=== PATIENT | male | born 1940 | race Caucasian/White ===

== ENCOUNTER 2016-12-30 13:10 | Outpatient (CLI) | payer MEDICARE, OTHER | END 2016-12-30 13:11 | disposition home or self-care (01) | DX: Z79.899 Other long term (current) drug therapy (principal); E11.9 Type 2 diabetes mellitus without complications; I10 Essential (primary) hypertension; Z12.5 Encounter for screening for malignant neoplasm of prostate; E78.5 Hyperlipidemia, unspecified | CPT/HCPCS: 36415; 80053; 80061; 83036; 85025; G0103 ==

== ENCOUNTER 2017-05-03 11:18 | Outpatient (CLI) | payer MEDICARE, OTHER ==
[2017-05-03 19:38] LABS: HEMOGLOBIN A1C 0.82 g/dL
== END 2017-05-03 11:19 | disposition home or self-care (01) ==
LOC: LAB.WCP 11:18
PROVIDERS: ATTEND Family Medicine
DX: E11.9 Type 2 diabetes mellitus without complications (principal)
CPT/HCPCS: 36415; 83036

== ENCOUNTER 2017-05-23 13:38 | Outpatient (CLI) | payer MEDICARE, OTHER | END 2017-05-23 13:39 | disposition home or self-care (01) | LOC: SC 13:38 | PROVIDERS: ATTEND Specialist | DX: G47.30 Sleep apnea, unspecified (principal); R53.83 Other fatigue; R06.83 Snoring; G47.8 Other sleep disorders | CPT/HCPCS: 99205; G0463; 99212 ==

== ENCOUNTER 2017-11-21 10:15 | Outpatient (CLI) | payer MEDICARE, OTHER | END 2017-11-21 10:16 | disposition home or self-care (01) | LOC: SC 10:15 | PROVIDERS: ATTEND Internal Medicine Pulmonary Disease | DX: G47.30 Sleep apnea, unspecified (principal); G47.10 Hypersomnia, unspecified; R06.83 Snoring | CPT/HCPCS: 99213; G0463; 99212 ==

== ENCOUNTER 2018-01-19 20:43 | Outpatient (CLI) | payer MEDICARE, OTHER | END 2018-01-19 20:44 | disposition home or self-care (01) | LOC: SC 20:43 | PROVIDERS: ATTEND Internal Medicine Pulmonary Disease | DX: G47.33 Obstructive sleep apnea (adult) (pediatric) (principal); G47.31 Primary central sleep apnea; G47.61 Periodic limb movement disorder; I48.91 Unspecified atrial fibrillation; R00.1 Bradycardia, unspecified | CPT/HCPCS: 95810 ==

== ENCOUNTER 2018-01-30 14:01 | Outpatient (CLI) | payer MEDICARE, OTHER | END 2018-01-30 14:02 | disposition home or self-care (01) | LOC: SC 14:01 | PROVIDERS: ATTEND Internal Medicine Pulmonary Disease | DX: G47.33 Obstructive sleep apnea (adult) (pediatric) (principal); G47.31 Primary central sleep apnea; I48.92 Unspecified atrial flutter; R00.1 Bradycardia, unspecified | CPT/HCPCS: 99213; G0463; 99212 ==

== ENCOUNTER 2018-02-06 07:20 | Outpatient (CLI) | payer MEDICARE, OTHER | END 2018-02-06 07:21 | disposition home or self-care (01) | LOC: DI 07:20 | PROVIDERS: ATTEND Family Medicine | DX: I48.91 Unspecified atrial fibrillation (principal); I51.7 Cardiomegaly | CPT/HCPCS: 93306 ==

== ENCOUNTER 2018-02-13 19:14 | Outpatient (CLI) | payer MEDICARE, OTHER | END 2018-02-13 19:15 | disposition home or self-care (01) | LOC: SC 19:14 | PROVIDERS: ATTEND Internal Medicine Pulmonary Disease | DX: G47.33 Obstructive sleep apnea (adult) (pediatric) (principal); G47.61 Periodic limb movement disorder; I48.91 Unspecified atrial fibrillation | CPT/HCPCS: 95811 ==

== ENCOUNTER 2018-02-19 07:20 | Day surgery (SDC) | payer MEDICARE, OTHER ==
[2018-02-19 08:06] VITALS: BP 132/78
== END 2018-02-19 07:21 | disposition home or self-care (01) ==
LOC: SDS 07:20
PROVIDERS: ATTEND Surgery
DX: Z12.11 Encounter for screening for malignant neoplasm of colon (principal); R00.1 Bradycardia, unspecified; Z53.9 Procedure and treatment not carried out, unspecified reason
CPT/HCPCS: 93005

== ENCOUNTER 2018-02-19 08:14 | Emergency (ER) | payer MEDICARE, OTHER ==
[2018-02-19] MEDS ORDERED: SODIUM CHLORIDE 0.9% 1,000 ML IV ONE (08:19)
--- NOTE | 2018-02-19 08:26 | ED Physician Documentation ---
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77 male hx a /fib flutter - with slow response - noted on presurgical echo as well as by sleep study this month - rate as low as 28 pt arrived for colonoscopy today and had preop EKG showing a flutter with ventricular escape rate of 33 not hypotensive feels fatigued also pmh HTN HLD DM PD PAST MEDICAL HISTORY - Past Medical History Cardiovascular: Hypertension, High cholesterol Endocrine/Autoimmune: Type 2 diabetes - Past Surgical History Past Surgical History: Yes Ortho: Hip replacement - Present Medications Home Medications: Ambulatory Orders Medication Instructions Recorded Confirmed Lisinopril 40 mg PO DAILY 04/18/16 02/16/18 Metformin HCl 500 mg PO BID 04/18/16 02/16/18 Aspirin [Aspirin EC] 81 mg PO DAILY 02/16/18 02/16/18 Atorvastatin [Lipitor] 40 mg PO DAILY 02/16/18 02/16/18 Gabapentin 600 mg PO DAILY 02/16/18 02/16/18 Hydrocodone/Acetaminophen 1 each PO Q8HR PRN 02/16/18 02/16/18 [Hydrocodone-Acetamin 5-325 mg] Meloxicam [Mobic] 15 mg PO DAILY 02/16/18 02/16/18 Multivitamin [Multiple Vitamins] 1 each PO DAILY 02/16/18 02/16/18 - Allergies Allergies/Adverse Reactions: Allergies Allergy/AdvReac Type Severity Reaction Status Date / Time No Known Drug Allergies Allergy Verified 04/18/16 13:36 - Social History Does the pt smoke?: No Smoking Status: Never smoker Does the pt drink ETOH?: Yes Does the pt have substance abuse?: No - Immunizations Immunizations are current?: No Immunizations: TDAP >10years/unknown Results - Vitals Vitals: Vital Signs - 24 hr 02/19/18 02/19/18 02/19/18 08:16 08:57 09:16 Temperature 36.5 C Heart Rate 34 L 33 L 32 L Respiratory 20 15 18 Rate Blood Pressure 165/69 H 152/80 H 168/73 H O2 Saturation 92 94 97 02/19/18 02/19/18 02/19/18 09:54 10:26 11:00 Temperature Heart Rate 31 L 31 L 95 Respiratory 21 18 14 Rate Blood Pressure 160/89 H 170/64 H 172/78 H O2 Saturation 95 95 95 02/19/18 11:34 Temperature Heart Rate 33 L Respiratory 14 Rate Blood Pressure 178/64 H O2 Saturation 95 Oxygen O2 Source Room air - EKG (time done) 0803 (done in OR) Rate: Rate (enter#) (33) Rhythm: Atrial flutter Compare to prior EKG: Other (a flutter slow vent response, vent escape at 33) - Labs Labs: Laboratory Tests 02/19/18 02/19/18 02/19/18 11:15 11:15 11:15 WBC 7.2 RBC 4.66 L Hgb 14.3 Hct 43.2 MCV 92.8 MCH 30.7 MCHC 33.0 RDW 15.6 H Plt Count 132 MPV 10.7 Neut # (Auto) 4.7 Lymph # (Auto) 1.8 [place]aine # (Auto) 0.5 Eos # (Auto) 0.1 Baso # (Auto) 0.0 Absolute Nucleated RBC 0.00 Nucleated RBC % 0.0 Sodium 140 Potassium 4.7 Chloride 105 Carbon Dioxide 24 Anion Gap 11.0 BUN 17 Creatinine 1.0 Estimated GFR (MDRD) 73 L Glucose 123 H Calcium 9.1 Troponin I < 0.04 PD MEDICAL DECISION MAKING - ED course ED course: a flutter with slow ventricular response / escape rhythm not on CCB or BB may need a PPM spoke to cardio Dr Aponte at [facility] and she accept pt in transfer pt was sent from OR without an IV or preop labs so IV and labs are being obtained in ER - Sepsis Event Vital Signs: Vital Signs - 24 hr 02/19/18 02/19/18 02/19/18 08:16 08:57 09:16 Temperature 36.5 C Heart Rate 34 L 33 L 32 L Respiratory 20 15 18 Rate Blood Pressure 165/69 H 152/80 H 168/73 H O2 Saturation 92 94 97 02/19/18 02/19/18 02/19/18 09:54 10:26 11:00 Temperature Heart Rate 31 L 31 L 95 Respiratory 21 18 14 Rate Blood Pressure 160/89 H 170/64 H 172/78 H O2 Saturation 95 95 95 02/19/18 11:34 Temperature Heart Rate 33 L Respiratory 14 Rate Blood Pressure 178/64 H O2 Saturation 95 Oxygen O2 Source Room air Departure - Departure Disposition: 02 Transfer Acute Care Hosp Clinical Impression: Bradycardia Follow-Up: ANDREW BAKER MD [Physician No Access] - Discharge Date/Time: 02/19/18 11:50
[2018-02-19 11:34] LABS: BASOPHILS % (AUTO) 0.4 %; EOSINOPHILS # (AUTO) 0.1 10^3/uL (0.0-0.7); EOSINOPHILS % (AUTO) 1.9 %; HGB - HEMOGLOBIN 14.3 g/dL (14.0-18.0); LYMPHOCYTES # (AUTO) 1.8 10^3/uL (1.5-3.5); LYMPHOCYTES % (AUTO) 25.1 %; MEAN CORPUSCULAR HEMOGLOBIN 30.7 pg (27.0-31.0); MEAN CORPUSCULAR VOLUME 92.8 fL (80.0-94.0); MEAN PLATELET VOLUME 10.7 fL (7.4-11.4); MONOCYTES # (AUTO) 0.5 10^3/uL (0.0-1.0); MONOCYTES % (AUTO) 7.1 %; NEUTROPHILS # (AUTO) 4.7 10^3/uL (1.5-6.6); NEUTROPHILS % (AUTO) 65.5 %; PLT - PLATELET COUNT 132 10^3/uL (130-450); RED BLOOD COUNT 4.66 10^6/uL (4.70-6.10); RED CELL DISTRIBUTION WIDTH 15.6 % (12.0-15.0); WHITE BLOOD COUNT 7.2 x10^3/uL (4.8-10.8)
[2018-02-19 11:36] VITALS: BP 178/64
[2018-02-19 11:37] LABS: CALCIUM 9.1 mg/dL (8.5-10.3)
== END 2018-02-19 11:50 | disposition short-term general hospital (02) ==
LOC: ED 08:14
DX: R00.1 Bradycardia, unspecified (principal); I48.91 Unspecified atrial fibrillation; I48.92 Unspecified atrial flutter; I45.10 Unspecified right bundle-branch block; I44.30 Unspecified atrioventricular block; Z12.11 Encounter for screening for malignant neoplasm of colon; Z53.9 Procedure and treatment not carried out, unspecified reason; I10 Essential (primary) hypertension; E78.00 Pure hypercholesterolemia, unspecified; E11.9 Type 2 diabetes mellitus without complications; Z96.649 Presence of unspecified artificial hip joint
CPT/HCPCS: 36415; 80048; 84484; 85025; 93005; 96360; 96361; 99284

== ENCOUNTER 2018-02-27 09:56 | Outpatient (CLI) | payer MEDICARE, OTHER | END 2018-02-27 09:57 | disposition home or self-care (01) | LOC: SC 09:56 | PROVIDERS: ATTEND Internal Medicine Pulmonary Disease | DX: G47.33 Obstructive sleep apnea (adult) (pediatric) (principal); G47.31 Primary central sleep apnea; E78.5 Hyperlipidemia, unspecified; E11.9 Type 2 diabetes mellitus without complications; I10 Essential (primary) hypertension; Z79.899 Other long term (current) drug therapy | CPT/HCPCS: 36415; 83036; 99213; G0463; 99212 ==

== ENCOUNTER 2018-02-27 14:13 | Outpatient (CLI) | payer MEDICARE, OTHER ==
[2018-02-27 19:29] LABS: HB2 TOTAL 16.9 g/dL; HEMOGLOBIN A1C 1.03 g/dL; HEMOGLOBIN A1C % 7.7 % (4.6-6.2)
== END 2018-02-27 14:14 | disposition home or self-care (01) ==
LOC: LAB.WCP 14:13
PROVIDERS: ATTEND Family Medicine
DX: Z79.899 Other long term (current) drug therapy (principal); E78.5 Hyperlipidemia, unspecified; E11.9 Type 2 diabetes mellitus without complications; I10 Essential (primary) hypertension
CPT/HCPCS: 36415; 83036

== ENCOUNTER 2018-03-15 14:11 | Outpatient (CLI) | payer MEDICARE, OTHER | END 2018-03-15 14:12 | disposition home or self-care (01) | LOC: LAB.WCP 14:11 | PROVIDERS: ATTEND Orthopaedic Surgery Foot and Ankle Surgery | DX: E55.9 Vitamin D deficiency, unspecified (principal) | CPT/HCPCS: 36415; 82306 ==

== ENCOUNTER 2018-05-28 10:05 | Outpatient (CLI) | payer MEDICARE, OTHER | END 2018-05-28 10:06 | disposition home or self-care (01) | LOC: SC 10:05 → EDSTATUS 10:30 | PROVIDERS: ATTEND Internal Medicine Pulmonary Disease | DX: G47.31 Primary central sleep apnea (principal); G47.33 Obstructive sleep apnea (adult) (pediatric) | CPT/HCPCS: 99212; 99213 ==

== ENCOUNTER 2018-11-28 08:00 | Outpatient (CLI) | payer MEDICARE, OTHER ==
[2018-11-28 13:31] LABS: BASOPHILS # (AUTO) 0.1 10^3/uL (0.0-0.1); BASOPHILS % (AUTO) 0.8 %; EOSINOPHILS # (AUTO) 0.1 10^3/uL (0.0-0.7); EOSINOPHILS % (AUTO) 1.5 %; HGB - HEMOGLOBIN 12.5 g/dL (14.0-18.0); LYMPHOCYTES # (AUTO) 1.8 10^3/uL (1.5-3.5); MEAN CORPUSCULAR HEMOGLOBIN 31.5 pg (27.0-31.0); MEAN CORPUSCULAR HGB CONC 33.1 g/dL (32.0-36.0); MEAN CORPUSCULAR VOLUME 95.1 fL (80.0-94.0); MEAN PLATELET VOLUME 10.1 fL (7.4-11.4); MONOCYTES # (AUTO) 0.4 10^3/uL (0.0-1.0); MONOCYTES % (AUTO) 6.6 %; NEUTROPHILS % (AUTO) 63.1 %; PLT - PLATELET COUNT 177 10^3/uL (130-450); RED BLOOD COUNT 3.96 10^6/uL (4.70-6.10); RED CELL DISTRIBUTION WIDTH 15.8 % (12.0-15.0); WHITE BLOOD COUNT 6.3 x10^3/uL (4.8-10.8)
[2018-11-28 14:03] LABS: CARBON DIOXIDE - CO2 26 mmol/L (21-32); CHLORIDE 105 mmol/L (101-111); GLUCOSE 140 mg/dL (70-100); SODIUM 141 mmol/L (135-145)
[2018-11-28 14:36] LABS: ALBUMIN 3.9 g/dL (3.2-5.5); ALBUMIN/GLOBULIN RATIO 1.3 (1.0-2.2); ALKALINE PHOSPHATASE 71 IU/L (42-121); ALT ALANINE AMINOTRANSFERASE 25 IU/L (10-60); AST ASPARTATE AMINOTRANSFERASE 25 IU/L (10-42); BILIRUBIN,TOTAL 1.8 mg/dL (0.2-1.0); BUN - BLOOD UREA NITROGEN 17 mg/dL (6-20); CHOL/HDL RATIO 2.9 (<5.0); CHOLESTEROL 161 mg/dL; GFR - MDRD 72 (>89); HDL CHOLESTEROL 56 mg/dL; LDL CHOLESTEROL,CALCULATED 80 mg/dL; LDL/HDL RATIO 1.4 (<3.6); VLDL CHOLESTEROL 25 mg/dL
[2018-11-28 15:54] LABS: HB2 TOTAL 12.7 g/dL; HEMOGLOBIN A1C 0.61 g/dL; HEMOGLOBIN A1C % 6.5 % (4.6-6.2)
== END 2018-11-28 23:59 | disposition home or self-care (01) ==
LOC: LAB.WCP 08:00
PROVIDERS: ATTEND Family Medicine
DX: E11.9 Type 2 diabetes mellitus without complications (principal); Z79.891 Long term (current) use of opiate analgesic
CPT/HCPCS: 36415; 80053; 80061; 83036; 83721; 84443; 85025

== ENCOUNTER 2019-02-28 06:55 | Day surgery (SDC) | payer MEDICARE, OTHER ==
[2019-02-28] MEDS ORDERED: BSS/LIDOCAINE/EPINEPHRINE 1 ML SYRINGE ONE ×2 (07:11→08:48)
[2019-02-28] MEDS ORDERED: TRIAMCIN/MOXIFLOX OPHTHALMIC 0.6 ML VIAL IO ONE ×2 (07:11→08:54)
[2019-02-28] MEDS ORDERED: TIMOLOL 0.5% OPHTH DROPS ONE (07:11)
[2019-02-28] MEDS ORDERED: BRIMONIDINE 0.2% OPHTH DROPS 5 ML ONE (07:11)
[2019-02-28] MEDS ORDERED: VANCOMYCIN OPHTHALMI 8MG/0.8ML 8 MG/0.8 ML SYRINGE IO ONE ×2 (07:11→08:54)
[2019-02-28] MEDS ORDERED: EPINEPHrine 1 MG/ML AMP ONE (07:11)
[2019-02-28] MEDS ORDERED: LACTATED RINGERS 500 ML IV ONE (07:18)
[2019-02-28] MEDS ORDERED: PHENYLEPHRINE 2.5% OPHTH 2 ML DROPS ONE (07:19)
[2019-02-28] MEDS ORDERED: KETOROLAC 0.45% OPHTH DROPS ONE (07:19)
[2019-02-28] MEDS ORDERED: CYCLOPENTOLATE 1% OPHTH DROPS 2 ML ONE (07:19)
[2019-02-28] MEDS ORDERED: PROPARACAINE 0.5% OPHTH DROPS 15 ML ONE (07:20)
[2019-02-28] MEDS ORDERED: PHENYLEPHRINE 2.5% OPHTH 2 ML DROPS RIGHTEYE ONE (07:25)
[2019-02-28] MEDS ORDERED: CYCLOPENTOLATE 1% OPHTH DROPS 2 ML RIGHTEYE ONE (07:25)
[2019-02-28] MEDS ORDERED: KETOROLAC 0.45% OPHTH DROPS RIGHTEYE ONE (07:25)
[2019-02-28] MEDS ORDERED: PROPARACAINE 0.5% OPHTH DROPS 15 ML RIGHTEYE ONE ×2 (07:25→08:54)
--- NOTE | 2019-02-28 08:09 | ANESTHESIA ---
Pre-Anesthesia VS, & Labs - Diagnosis nuclear sclerotic cataract, right - Procedure cataract extraction with intraocular lens Vital Signs: Temp Pulse Resp BP Pulse Ox 36.0 C L 64 18 136/68 H 96 02/28/19 07:18 02/28/19 07:18 02/28/19 07:18 02/28/19 07:18 02/28/19 07:18 Height 68 ft Weight (kg) 108 kg Body Mass Index 36.1 - NPO >8 hours Home Medications and Allergies Home Medications: Ambulatory Orders Allopurinol 100 mg PO DAILY 02/27/19 Atorvastatin [Lipitor] 40 mg PO DAILY 02/27/19 Furosemide 40 mg PO DAILY 02/27/19 Rivaroxaban [Xarelto] 20 mg PO DAILY 02/27/19 Valacyclovir HCl [Valtrex] 1,000 mg PO PRN PRN 02/27/19 amLODIPine [Norvasc] 5 mg PO DAILY 02/27/19 Acetaminophen [Tylenol Extra Strength] 1,000 mg PO ONCE PRN 02/28/19 Lisinopril 20 mg PO BID 04/18/16 Metformin HCl 500 mg PO BID 04/18/16 Gabapentin 600 mg PO DAILY 02/16/18 Multivitamin [Multiple Vitamins] 1 each PO DAILY 02/16/18 Allopurinol 100 mg PO DAILY 02/27/19 Atorvastatin [Lipitor] 40 mg PO DAILY 02/27/19 Furosemide 40 mg PO DAILY 02/27/19 Rivaroxaban [Xarelto] 20 mg PO DAILY 02/27/19 Valacyclovir HCl [Valtrex] 1,000 mg PO PRN PRN 02/27/19 amLODIPine [Norvasc] 5 mg PO DAILY 02/27/19 Acetaminophen [Tylenol Extra Strength] 1,000 mg PO ONCE PRN 02/28/19 Allergies/Adverse Reactions: Allergies Allergy/AdvReac Type Severity Reaction Status Date / Time No Known Drug Allergies Allergy Verified 02/28/19 07:27 Anes History & Medical History - Anesthetic History Anesthesia Complications: reports: No previous complications - Medical History Cardiovascular: reports: Hypertension, High cholesterol, Arrhythmia (s/p cardiac abation), Other Pulmonary: reports: Sleep apnea, CPAP use Gastrointestinal: reports: Hemorrhoids Urinary: reports: None Musculoskeletal: reports: Osteoarthritis, Gout, Chronic back pain Endocrine/Autoimmune: reports: Type 2 diabetes Skin: reports: None Smoking Status: Never smoker - Surgical History General: Colonoscopy Orthopedic: Hip replacement Exam General: Alert Plan Anesthesia Type: MAC Consent for Procedure(s) Verified and Reviewed: Yes Code Status: Attempt Resuscitation ASA classification: 2-Mild systemic disease Is this case an emergency?: No
[2019-02-28] MEDS ORDERED: CHONDR SULF/HYALURONATE SYRINGE IO ONE (08:53)
[2019-02-28] MEDS ORDERED: EPINEPHrine 1 MG/ML AMP IVP ONE (08:53)
[2019-02-28] MEDS ORDERED: BSS/LIDOCAINE/EPINEPHRINE 1 ML SYRINGE IO ONE (08:53)
[2019-02-28] MEDS ORDERED: TIMOLOL 0.5% OPHTH DROPS OPTH ONE (08:53)
[2019-02-28] MEDS ORDERED: BRIMONIDINE 0.2% OPHTH DROPS 5 ML OPTH ONE (08:53)
[2019-02-28 09:24] VITALS: BP 121/71
--- NOTE | 2019-02-28 09:28 | OPERATIVE REPORT ---
DATE OF SERVICE: 02/28/2019 Physician: Taj Gallardo MD PREOPERATIVE DIAGNOSIS: Visually significant cataract, right eye. This was his first cataract surge ry. POSTOPERATIVE DIAGNOSIS: Visually significant cataract, right eye. This was his first cataract surg tonya. DESCRIPTION OF PROCEDURE: Phacoemulsification with posterior chamber intraocular lens implant, right eye. SURGEON: Taj Gallardo M.D. ANESTHESIA: Monitored anesthesia care. COMPLICATIONS: None. OPERATIVE INDICATIONS: This is a 78-year-old man with progressive vision loss in the right eye due t o 2+ nuclear sclerotic cataract. Best corrected visual acuity was 20/30 with glare to 20/80 in the r ight eye. Indications for surgery were difficulty reading, difficulty driving in low light or at nig ht, difficulty driving at night because of headlights from other vehicles, difficulty with glare or b right lights in any situation, and decreased acuity with firearms. He was consented at length concer best risks and benefits of cataract surgery, after which he expressed a desire to proceed with surger y. OPERATIVE PROCEDURE: Patient was taken to OR #3 and placed under monitored anesthesia care. Surgica l timeout was conducted confirming correct patient, correct procedure, and correct surgical site. He was given topical anesthesia, then prepped and draped in the usual sterile fashion. The eye was ent ered at the 12 and 9 o'clock positions. Intracameral Shugarcaine was injected into the anterior shona rima, followed by Viscoat. A continuous-tear curvilinear capsulorrhexis was performed. The nucleus w as hydrodissected and phacoemulsified. The cortex was evacuated using automated infusion and aspirat ion. Provisc was injected in the capsular bag, and a 20.5 diopter intraocular lens was inserted into the bag. Approximately 0.8 mL of a mixture of triamcinolone, moxifloxacin and vancomycin was inject ed subconjunctivally in the superior quadrant for infection and inflammation prophylaxis. I and A wa s used to evacuate the viscoelastic materials. The eye was inflated to physiologic pressure using ba lanced salt solution and found to be watertight. Patient was taken from the operating room in good c ondition and given postoperative instructions. TD: 02/28/2019 09:07
== END 2019-02-28 06:56 | disposition home or self-care (01) ==
LOC: SDS 06:55
PROVIDERS: ATTEND Ophthalmology
PROC: 08RJ3JZ Replacement of Right Lens with Synthetic Substitute, Percutaneous Approach (ICD-10-PCS; principal; 2019-02-28 08:30)
DX: H25.11 Age-related nuclear cataract, right eye (principal); E11.9 Type 2 diabetes mellitus without complications; I10 Essential (primary) hypertension; G47.30 Sleep apnea, unspecified
CPT/HCPCS: 66984; A9270; V2632

== ENCOUNTER 2019-04-04 08:01 | Outpatient (CLI) | payer MEDICARE, OTHER ==
[2019-04-04 13:04] LABS: CHOL/HDL RATIO 4.5 (<5.0); CHOLESTEROL 206 mg/dL; HDL CHOLESTEROL 46 mg/dL; LDL CHOLESTEROL,CALCULATED 91 mg/dL; VLDL CHOLESTEROL 69 mg/dL
[2019-04-04 14:23] LABS: HB2 TOTAL 12.2 g/dL; HEMOGLOBIN A1C 0.69 g/dL; HEMOGLOBIN A1C % 7.3 % (4.6-6.2)
== END 2019-04-04 23:59 | disposition home or self-care (01) ==
LOC: LAB.WCP 08:01
PROVIDERS: ATTEND Internal Medicine
DX: I48.3 Typical atrial flutter (principal); I10 Essential (primary) hypertension; E11.9 Type 2 diabetes mellitus without complications
CPT/HCPCS: 36415; 80061; 83036; 83721

== ENCOUNTER 2019-06-06 09:47 | Outpatient (CLI) | payer MEDICARE, OTHER ==
[2019-06-06 13:33] LABS: CREATININE,URINE 22.5 mg/dL
[2019-06-06 13:33] LABS: HB2 TOTAL 12.4 g/dL; HEMOGLOBIN A1C 0.61 g/dL; HEMOGLOBIN A1C % 6.7 % (4.6-6.2)
[2019-06-06 13:40] LABS: ALBUMIN 4.2 g/dL (3.2-5.5); ALBUMIN/GLOBULIN RATIO 1.3 (1.0-2.2); ALKALINE PHOSPHATASE 69 IU/L (42-121); ALT ALANINE AMINOTRANSFERASE 34 IU/L (10-60); AST ASPARTATE AMINOTRANSFERASE 29 IU/L (10-42); BILIRUBIN,TOTAL 1.2 mg/dL (0.2-1.0); BUN - BLOOD UREA NITROGEN 26 mg/dL (6-20); CALCIUM 9.2 mg/dL (8.5-10.3); CARBON DIOXIDE - CO2 26 mmol/L (21-32); CHLORIDE 107 mmol/L (101-111); CHOL/HDL RATIO 3.1 (<5.0); CHOLESTEROL 170 mg/dL; GFR - MDRD 72 (>89); GLUCOSE 150 mg/dL (70-100); HDL CHOLESTEROL 54 mg/dL; LDL CHOLESTEROL,CALCULATED 96 mg/dL; LDL/HDL RATIO 1.8 (<3.6); SODIUM 140 mmol/L (135-145); TOTAL PROTEIN 7.5 g/dL (6.7-8.2); VLDL CHOLESTEROL 20 mg/dL
[2019-06-06 13:41] LABS: TOTAL PROTEIN,URINE TIMED < 6 mg/dL
== END 2019-06-06 23:59 | disposition home or self-care (01) ==
LOC: LAB.WCP 09:47
PROVIDERS: ATTEND Family Medicine
DX: E11.9 Type 2 diabetes mellitus without complications (principal); E78.5 Hyperlipidemia, unspecified
CPT/HCPCS: 36415; 80053; 80061; 82570; 83036; 83721; 84156; 84443

== ENCOUNTER 2019-12-27 10:37 | Outpatient (CLI) | payer MEDICARE, OTHER ==
[2019-12-27 11:04] LABS: BASOPHILS % (AUTO) 0.6 %; EOSINOPHILS # (AUTO) 0.2 10^3/uL (0.0-0.7); EOSINOPHILS % (AUTO) 2.4 %; LYMPHOCYTES # (AUTO) 2.3 10^3/uL (1.5-3.5); LYMPHOCYTES % (AUTO) 32.1 %; MEAN CORPUSCULAR HEMOGLOBIN 32.5 pg (27.0-31.0); MEAN CORPUSCULAR VOLUME 98.5 fL (80.0-94.0); MEAN PLATELET VOLUME 11.6 fL (7.4-11.4); MONOCYTES # (AUTO) 0.6 10^3/uL (0.0-1.0); MONOCYTES % (AUTO) 8.3 %; NEUTROPHILS % (AUTO) 56.3 %; PLT - PLATELET COUNT 180 10^3/uL (130-450); RED CELL DISTRIBUTION WIDTH 14.4 % (12.0-15.0)
[2019-12-27 11:21] LABS: ALBUMIN 4.4 g/dL (3.2-5.5); ALBUMIN/GLOBULIN RATIO 1.4 (1.0-2.2); ALKALINE PHOSPHATASE 79 IU/L (42-121); ALT ALANINE AMINOTRANSFERASE 29 IU/L (10-60); AST ASPARTATE AMINOTRANSFERASE 26 IU/L (10-42); BILIRUBIN,TOTAL 1.3 mg/dL (0.2-1.0); BUN - BLOOD UREA NITROGEN 33 mg/dL (6-20); CALCIUM 9.5 mg/dL (8.5-10.3); CARBON DIOXIDE - CO2 26 mmol/L (21-32); CHLORIDE 102 mmol/L (101-111); CHOL/HDL RATIO 3.8 (<5.0); CHOLESTEROL 183 mg/dL; CREATININE 1.3 mg/dL (0.6-1.2); GLUCOSE 167 mg/dL (70-100); HDL CHOLESTEROL 48 mg/dL; LDL CHOLESTEROL,CALCULATED 71 mg/dL; LDL/HDL RATIO 1.5 (<3.6); SODIUM 139 mmol/L (135-145); TOTAL PROTEIN 7.5 g/dL (6.7-8.2); VLDL CHOLESTEROL 64 mg/dL
[2019-12-27 11:36] LABS: CREATININE,URINE 84.1 mg/dL; MICROALBUM/CREATININE RATIO,UR 5.9 ug/mg (<30.0); MICROALBUMIN,URINE 0.5 mg/dL (0-300.0)
[2019-12-27 11:40] LABS: HB2 TOTAL 13.4 g/dL; HEMOGLOBIN A1C 0.64 g/dL; HEMOGLOBIN A1C % 6.5 % (4.6-6.2)
--- NOTE | 2019-12-27 16:36 | XRAY Report ---
Reason: ARTHRITIS,LEFT KNEE Procedure Date: 12/27/2019 Accession Number: [id number] / [id number] Procedure: XR - Knee 2 View LT CPT Code: Final Report FULL RESULT: EXAM: LEFT KNEE RADIOGRAPHY EXAM DATE: 12/27/2019 11:11 AM. CLINICAL HISTORY: ARTHRITIS, LEFT KNEE. COMPARISON: None. TECHNIQUE: 2 views. FINDINGS: Bones: Normal. No fractures or bone lesions. Joints: Moderate joint space narrowing in the medial compartment with no significant sclerotic changes or osteophyte formations. Soft Tissues: Normal. No soft tissue swelling. IMPRESSION: Mild degenerative changes in the patellofemoral compartment and medial compartment. RADIA
== END 2019-12-27 10:38 | disposition home or self-care (01) ==
LOC: LAB 10:37
PROVIDERS: ATTEND Family Medicine
DX: M17.12 Unilateral primary osteoarthritis, left knee (principal); E11.9 Type 2 diabetes mellitus without complications
CPT/HCPCS: 36415; 80053; 80061; 82043; 82570; 83036; 83721; 85025

== ENCOUNTER 2020-03-03 14:38 | Outpatient (CLI) | payer MEDICARE, OTHER ==
--- NOTE | 2020-03-03 15:16 | SLEEP CARE CONSULTATION ---
Information from patient questionnaire entered by Trinh Szymanski. I have reviewed and concur with the information entered by Trinh Szymanski. This document represents the service I personally performed and the decisions made by me, Benito Armijo MD, [facility]. History of Present Illness Service Date and Time: 03/03/2020 1438 Previous diagnosis: Severe, Obstructive Sleep Apnea-Hypopnea Syndrome, Central Sleep Apnea-Hypopnea Syndrome AHI: 54.7 Reason for follow up: annual Equipment type: CPAP Equipment obtained from: [employer] Prior sleep studies: Yes Year and Where: 2017 [facility] Type of Sleep Study: Polysomnography HPI additional information: HPI: Mr. Alvarado returned today for follow up of nasal CPAP therapy. He was diagnosed to have moderate central and obstructive sleep apnea-hypopnea syndrome. The patient gets his supplies from [employer]. He switched from [employer] DreamWear nasal cushion mask to nasal pillows with a chinstrap. He reports using the device nightly and all through the night. The compliance report shows usage in 89 nights out of the past 90 nights, averaging 5.9 hours a night. The > 4 hour compliance rate for the past 90 days is 85.6%. He complained of no particular problem with the device such as soreness on the face, dry nose, epistaxis, nasal congestion or headache. He thinks that the pressure of 8 - 12 cmH2O is comfortable. On the CPAP therapy he notices improvement in his sleep quality, and that he wakes up feeling fresher in the morning and more awake/alert during the day. The [place] Sleepiness Scale score 6. His notices no snore at all. The average residual AHI is 2.4; and air leak, 3 minutes a night. The 90th percentile pressure is 10.4 cmH2O. CPAP Compliance Data - Data Reviewed with Patient Average duration of nightly device use: 5h 55m Compliance rate %: 52.8 Current pressure setting (cmH2O): 8-12 Humidity settin Average residual AHI: 2.5 Average large leak: 4m 22s Subjective Initial [place] Sleepiness Scale score: 17 Allergies and Home Medications Drug allergies reviewed: Yes Home medication list reviewed: Yes Review of Systems Review of systems same as previous: Yes Physical Exam Vital signs obtained and entered by: detailed physical exam is deferred because the Coronavirus epidemic Height: 68 ft Weight: 235 lb Body Mass Index: 0.2 BMI Classification: Underweight Impression and Plan IMPRESSION: 1. Central and Obstructive Sleep Apnea-Hypopnea Syndrome, severe with the patient doing well on nasal CPAP therapy. He has excellent compliance and significant clinical improvement. The current pressure appears effective and comfortable. Overall, she is very satisfied with treatment and plans to continue with it long-term. No adjustment is necessary today. PLAN: 1. Continue with autoCPAP set at 8 - 12 cmH2O. 2. Try to lose weight 3. Try other masks and nasal pillows. 4. Return in one year for follow up or earlier if there is any problem with the treatment. Visit Type: In Office Time Spent with Patient (minutes): 15 Provider Statement: I spent 100% of the Face to Face Visit with the patient with greater than 50% spent counseling the patient and coordination of care.
== END 2020-03-03 14:39 | disposition home or self-care (01) ==
LOC: SC 14:38
PROVIDERS: ATTEND Internal Medicine Pulmonary Disease
DX: G47.31 Primary central sleep apnea (principal); G47.33 Obstructive sleep apnea (adult) (pediatric)
CPT/HCPCS: 99213; G0463; 99212

== ENCOUNTER 2020-08-01 13:40 | Outpatient (CLI) | payer MEDICARE, OTHER | END 2020-08-01 23:59 | disposition home or self-care (01) | LOC: LAB.R 13:40 | PROVIDERS: ATTEND Nurse Practitioner | DX: U07.1 COVID-19 (principal); J06.9 Acute upper respiratory infection, unspecified | CPT/HCPCS: 87275; 87276; U0004 ==

== ENCOUNTER 2021-02-18 08:40 | Outpatient (CLI) | payer MEDICARE, OTHER ==
[2021-02-18 11:54] LABS: BASOPHILS % (AUTO) 0.6 %; EOSINOPHILS # (AUTO) 0.2 10^3/uL (0.0-0.7); EOSINOPHILS % (AUTO) 2.3 %; HCT - HEMATOCRIT 40.6 % (42.0-52.0); LYMPHOCYTES # (AUTO) 1.8 10^3/uL (1.5-3.5); MEAN CORPUSCULAR HEMOGLOBIN 31.9 pg (27.0-31.0); MEAN CORPUSCULAR VOLUME 99.5 fL (80.0-94.0); MEAN PLATELET VOLUME 12.1 fL (7.4-11.4); MONOCYTES # (AUTO) 0.5 10^3/uL (0.0-1.0); MONOCYTES % (AUTO) 7.8 %; NEUTROPHILS # (AUTO) 4.3 10^3/uL (1.5-6.6); NEUTROPHILS % (AUTO) 62.9 %; PLT - PLATELET COUNT 178 10^3/uL (130-450); RED BLOOD COUNT 4.08 10^6/uL (4.70-6.10); RED CELL DISTRIBUTION WIDTH 14.3 % (12.0-15.0); WHITE BLOOD COUNT 6.8 x10^3/uL (4.8-10.8)
[2021-02-18 12:17] LABS: ESTIMATED AVERAGE GLUCOSE 154 mg/dL (70-100)
[2021-02-18 12:26] LABS: ALBUMIN 4.3 g/dL (3.2-5.5); ALBUMIN/GLOBULIN RATIO 1.4 (1.0-2.2); ALKALINE PHOSPHATASE 66 IU/L (42-121); ALT ALANINE AMINOTRANSFERASE 19 IU/L (10-60); AST ASPARTATE AMINOTRANSFERASE 20 IU/L (10-42); BILIRUBIN,TOTAL 1.4 mg/dL (0.2-1.0); BUN - BLOOD UREA NITROGEN 26 mg/dL (6-20); CALCIUM 9.3 mg/dL (8.5-10.3); CARBON DIOXIDE - CO2 24 mmol/L (21-32); CHLORIDE 108 mmol/L (101-111); CHOL/HDL RATIO 3.7 (<5.0); CHOLESTEROL 181 mg/dL; CREATININE 1.2 mg/dL (0.6-1.2); GFR - MDRD 58 (>89); GLUCOSE 194 mg/dL (70-100); HDL CHOLESTEROL 49 mg/dL; LDL CHOLESTEROL,CALCULATED 80 mg/dL; LDL/HDL RATIO 1.6 (<3.6); POTASSIUM 4.7 mmol/L (3.5-5.0); SODIUM 143 mmol/L (135-145); TOTAL PROTEIN 7.3 g/dL (6.7-8.2); TRIGLYCERIDES 262 mg/dL; URIC ACID 7.3 mg/dL (2.6-7.2); VLDL CHOLESTEROL 52 mg/dL
[2021-02-18 12:30] LABS: THYROID STIMULATING HORMONE 1.16 uIU/mL (0.34-5.60)
== END 2021-02-18 23:59 | disposition home or self-care (01) ==
LOC: LAB.WCP 08:40
PROVIDERS: ATTEND Family Medicine
DX: E11.9 Type 2 diabetes mellitus without complications (principal); K62.5 Hemorrhage of anus and rectum; I10 Essential (primary) hypertension
CPT/HCPCS: 36415; 80053; 80061; 82043; 82570; 83036; 83721; 84443; 84550; 85025

== ENCOUNTER 2021-03-23 11:19 | Outpatient (CLI) | payer MEDICARE, OTHER ==
--- NOTE | 2021-03-23 12:08 | SLEEP CARE CONSULTATION ---
Information from patient questionnaire entered by Karin Kyle. I have reviewed and concur with the information entered by Karin Kyle. This document represents the service I personally performed and the decisions made by , Janel Cuevas ARNP. History of Present Illness Service Date and Time: 03/23/2021 1119 Previous diagnosis: Severe, Obstructive Sleep Apnea-Hypopnea Syndrome, Central Sleep Apnea-Hypopnea Syndrome AHI: 54.7 (in 2018) Reason for follow up: annual (last seen 02/2020) Equipment type: CPAP Equipment obtained from: [facility] (getting supplies as needed) Mask style: Nasal pillows Backup mask available: Yes (old mask) Last cushion change: 2 months Prior sleep studies: Yes Year and Where: 2018 - [facility] HPI additional information: GIANFRANCO SERVIN was diagnosed to have severe, AHI 54.7, obstructive sleep apnea-hypopnea syndrome and returned today for CPAP therapy annual follow-up. CPAP Compliance Data - Data Reviewed with Patient Average duration of nightly device use: 6 hr 24 min Compliance rate %: 94.4 (180 days) Current pressure setting (cmH2O): 8-12 Humidity settin Heated hose settin Average residual AHI: 1.5 Average large leak: 4 min 8 sec Subjective Missed days of use due to: reports: mask issues, travel Patient concerns: reports: dry mouth, nose, throat (not every night; doesn't use the humidity chamber). denies: aerophagia, mask discomfort, air blowing in eyes, mask leak noise, condensation in mask/hose, nasal congestion, epistaxis, other Observed to snore while using device: No Current pressure setting perceived as: comfortable On therapy, patient: reports: sleeping better, awakening more refreshed, being more awake and alert during the day, more rested overall. denies: drowsiness while driving Initial [place] Sleepiness Scale score: 17 (in 2017) Current [place] Sleepiness Scale score: 10 Allergies and Home Medications Home medication list reviewed: Yes (no changes) Review of Systems Review of systems same as previous: Yes (no changes) Physical Exam Heart Rate: 61 O2 Saturation: 94 Height: 5 ft 8 in Weight: 235 lb Body Mass Index: 35.7 BMI Classification: Obese Impression and Plan 1. Obstructive Sleep Apnea-Hypopnea Syndrome, severe, with good treatment compliance and good apnea control. On CPAP therapy, the patient has better sleep quality and is more rested overall. Gianfranco does not use the humidity feature on his CPAP and states he only gets a dry mouth here and there. He has trained himself to keep his mouth closed and no longer uses the chinstrap. Patient has a DreamStation that was set up in 2018. I informed the patient that [employer] has a recall on several devices like the patients machine. Patient was encouraged to register their device online with [employer] for the recall to see if their device is affected. If their device is affected they should start a claim. Patient denies any black particles seen in machine or hoses, any unusual odors coming from device. Patient has not experienced any physical symptoms such as upper airway irritation, headache, skin or eye irritation, asthma, nausea/vomiting, difficulty breathing or chest pain. Patient informed that they may use an inline CPAP filter that they can obtain online to reduce chance of any particles being inhaled or ingested. We discussed thoroughly the health risks of not using the CPAP versus continuing use with the filter in place. If patient is not able to sleep due to waking up choking, gasping for air or other respiratory distress that they may decide to continue using it until it is either replaced or repaired. Patient voiced understanding and agreement with plan. Patient's apnea severity and rationale for treatment to reduce apnea, improve sleep quality and reduce cardiovascular and cerebrovascular events was reviewed. I also reviewed the benefit of consistent device use of CPAP for cardiac disease, arrhythmia, diabetes, gastric reflux, and anxiety. Patient was encouraged to lose weight for their overall health and to reduce apneas. * Continue auto CPAP pressure at 8-12 cmH2O * Patient to register his CPAP for recall * Notify me if snoring with mask or feeling that the pressure is too much or too little * Attempt to lose weight * Call this office if any problems using CPAP * Return for follow up in 1 year, or sooner if concerns arise Counseling Topics: Spare mask, Weight loss health impact Visit Type: In Office Time Spent with Patient (minutes): 20 Provider Statement: I spent 100% of the Face to Face Visit with the patient with greater than 50% spent counseling the patient and coordination of care.
== END 2021-03-23 11:20 | disposition home or self-care (01) ==
LOC: SC 11:19
PROVIDERS: ATTEND Nurse Practitioner Family
DX: G47.31 Primary central sleep apnea (principal); G47.33 Obstructive sleep apnea (adult) (pediatric); E66.9 Obesity, unspecified; Z68.35 Body mass index [BMI] 35.0-35.9, adult
CPT/HCPCS: 99213; G0463; 99212

== ENCOUNTER 2021-07-20 07:54 | Day surgery (SDC) | payer MEDICARE, OTHER ==
[2021-07-20] MEDS ORDERED: PROPOFOL 500 MG/50 ML 500 MG/50 ML VIAL ONE (08:16)
[2021-07-20] MEDS ORDERED: LACTATED RINGERS 1,000 ML IV ONE (08:27)
--- NOTE | 2021-07-20 08:49 | ANESTHESIA ---
Pre-Anesthesia VS, & Labs - Diagnosis rectal bleeding - Procedure colonoscopy, possible banding, EUA Height: 5 ft 8 in Weight (kg): 109.4 kg Body Mass Index: 36.6 BMI Classification: Obese - NPO >8 hours - Lab Results Current Lab Results: Laboratory Tests 07/20/21 08:20: POC Whole Bld Glucose 129 H Home Medications and Allergies Metformin HCl 500 mg PO BID 04/18/16 lisinopriL [Lisinopril] 20 mg PO BID 04/18/16 Gabapentin 600 mg PO DAILY 02/16/18 Multivitamin [Multiple Vitamins] 1 each PO DAILY 02/16/18 Atorvastatin [Lipitor] 40 mg PO DAILY 02/27/19 Furosemide 40 mg PO DAILY 02/27/19 Rivaroxaban [Xarelto] 20 mg PO DAILY 02/27/19 Valacyclovir HCl [Valtrex] 1,000 mg PO PRN PRN 02/27/19 allopurinoL [Allopurinol] 100 mg PO DAILY 02/27/19 amLODIPine [Norvasc] 5 mg PO DAILY 02/27/19 Acetaminophen [Tylenol Extra Strength] 1,000 mg PO ONCE PRN 02/28/19 Allergies/Adverse Reactions: Allergies Allergy/AdvReac Type Severity Reaction Status Date / Time No Known Drug Allergies Allergy Verified 02/28/19 07:27 Anes History & Medical History - Anesthetic History Anesthesia Complications: reports: No previous complications - Medical History Cardiovascular: reports: Hypertension, High cholesterol, Deep vein thrombosis, Arrhythmia, Other Pulmonary: reports: Sleep apnea, CPAP use Gastrointestinal: reports: Hemorrhoids Urinary: reports: None Musculoskeletal: reports: Osteoarthritis, Gout, Chronic back pain Endocrine/Autoimmune: reports: Type 2 diabetes Skin: reports: None Smoking Status: Never smoker History of Cancer?: Yes (melanoma right ear) - Surgical History General: reports: Colonoscopy Cardiothoracic: reports: Other Orthopedic: reports: Hip replacement, Spine surgery Exam General: Alert Dental: WNL Mouth Opening: Greater than 4 Fingerbreadths Neck Mobility: Normal Mallampati classification: III Thyromental Distance: greater than 6 cm Respiratory: Lungs clear, Decreased breath sounds Cardiovascular: Regular rate Plan Anesthesia Type: Total IV Consent for Procedure(s) Verified and Reviewed: Yes Code Status: Attempt Resuscitation ASA classification: 3-Severe systemic disease Is this case an emergency?: No
[2021-07-20] MEDS ORDERED: MIDAZOLAM 2 MG/2 ML VIAL ONE (09:13)
[2021-07-20] MEDS ORDERED: LACTATED RINGERS 500 ML IV ONE (09:46)
--- NOTE | 2021-07-20 09:50 | OPERATIVE REPORT ---
Operative Report - General Procedure Date: 07/20/21 Planned Procedure: Hemorrhoid banding Pre-Op Diagnosis: Symptomatic internal hemorrhoids Procedure Performed: Hemorrhoid banding following colonoscopy Post Op Diagnosis: Symptomatic internal hemorrhoids - Procedure Note Primary Surgeon: Tung Anesthesia Provider: CHANA Cruz Pathology: None Estimated Blood Loss (mL): 1 Findings: A full christie of enlarged internal hemorrhoids with associated skin tags Complications: None apparent - Other Other Information/Narrative: Colonoscopy was completed immediately prior to the banding procedure. Timeout was done at the start of the colonoscopy procedure.The patient remained sedated with monitored anesthesia care at this time. All elements of the surgical safety checklist were followed before, during, and after this procedure. The anoscope with obturator was lubricated and placed in the patient's anal canal. The obturator was removed and the slots aligned to allow access to 3 column internal hemorrhoids. The device, the [employer] multi band ligator-short shot-was placed into the anal canal. The tip of the device was placed in contact with the tissue to be treated beginning at the 4 o'clock position. The suction port was closed. A single band was deployed and the suction port released.The band was noted to be in place.We next addressed the hemorrhoid complex at 7:00.The tip of the device was placed in contact with the tissue, the suction port covered, a band deployed, the suction port released. Again we were able to see that the band was in place.We next addressed the hemorrhoid at the 11 o'clock position. This was the smallest of the 3. The tip of the device was placed in contact with the tissue, the suction port covered, a band deployed, the suction port released. Again we were able to see that the band was in place.Examination of the anal count canal revealed all [address] The anoscope was removed and the procedure concluded. The patient tolerated the procedure well. She was allowed awaken from sedation and taken to the postanesthesia care unit in good condition.
[2021-07-20 10:26] VITALS: BP 122/61
--- NOTE | 2021-07-20 13:35 | ANESTHESIA POST OP EVALUATION ---
Anesthesia Post Eval - Post Anesthesia Eval Vitals: Last Vital Signs Temp 37.0 C 07/20/21 10:26 Pulse 60 07/20/21 10:26 Resp 20 07/20/21 10:26 BP 122/61 07/20/21 10:26 Pulse Ox 96 07/20/21 10:26 CV Function Including HR & BP: Stable Pain Control: Satisfactory Nausea & Vomiting: Negative Mental Status: Baseline Respiratory Status: Airway Patent Hydration Status: Satisfactory Anesthesia Complications: None
== END 2021-07-20 07:55 | disposition home or self-care (01) ==
LOC: SDS 07:54
PROVIDERS: ATTEND Surgery
PROC: 0DBL8ZZ Excision of Transverse Colon, Via Natural or Artificial Opening Endoscopic (ICD-10-PCS; 2021-07-20)
PROC: 0DBN8ZZ Excision of Sigmoid Colon, Via Natural or Artificial Opening Endoscopic (ICD-10-PCS; principal; 2021-07-20 09:15)
DX: K62.5 Hemorrhage of anus and rectum (principal); K64.8 Other hemorrhoids; D12.3 Benign neoplasm of transverse colon; K57.30 Diverticulosis of large intestine without perforation or abscess without bleeding; K63.5 Polyp of colon; G47.33 Obstructive sleep apnea (adult) (pediatric); N40.0 Benign prostatic hyperplasia without lower urinary tract symptoms; E66.9 Obesity, unspecified; Z68.36 Body mass index [BMI] 36.0-36.9, adult
CPT/HCPCS: 45385; 46221; J7120

== ENCOUNTER 2022-04-21 08:41 | Outpatient (CLI) | payer MEDICARE, OTHER ==
[2022-04-21 11:41] LABS: BASOPHILS % (AUTO) 0.5 %; EOSINOPHILS # (AUTO) 0.1 10^3/uL (0.0-0.7); EOSINOPHILS % (AUTO) 2.2 %; HCT - HEMATOCRIT 38.7 % (42.0-52.0); HGB - HEMOGLOBIN 12.7 g/dL (14.0-18.0); LYMPHOCYTES # (AUTO) 2.1 10^3/uL (1.5-3.5); LYMPHOCYTES % (AUTO) 32.8 %; MEAN CORPUSCULAR HEMOGLOBIN 31.5 pg (27.0-31.0); MEAN CORPUSCULAR HGB CONC 32.8 g/dL (32.0-36.0); MEAN PLATELET VOLUME 12.1 fL (7.4-11.4); MONOCYTES # (AUTO) 0.5 10^3/uL (0.0-1.0); NEUTROPHILS # (AUTO) 3.5 10^3/uL (1.5-6.6); NEUTROPHILS % (AUTO) 55.9 %; PLT - PLATELET COUNT 168 10^3/uL (130-450); RED BLOOD COUNT 4.03 10^6/uL (4.70-6.10); RED CELL DISTRIBUTION WIDTH 14.2 % (12.0-15.0); WHITE BLOOD COUNT 6.3 x10^3/uL (4.8-10.8)
[2022-04-21 12:04] LABS: ALBUMIN 4.1 g/dL (3.2-5.5); ALBUMIN/GLOBULIN RATIO 1.3 (1.0-2.2); ALKALINE PHOSPHATASE 65 IU/L (42-121); ALT ALANINE AMINOTRANSFERASE 39 IU/L (10-60); AST ASPARTATE AMINOTRANSFERASE 31 IU/L (10-42); BILIRUBIN,TOTAL 1.3 mg/dL (0.2-1.0); BUN - BLOOD UREA NITROGEN 27 mg/dL (6-20); CALCIUM 9.3 mg/dL (8.5-10.3); CARBON DIOXIDE - CO2 24 mmol/L (21-32); CHLORIDE 107 mmol/L (101-111); CHOL/HDL RATIO 3.6 (<5.0); CHOLESTEROL 179 mg/dL; GFR - MDRD 72 (>89); GLUCOSE 155 mg/dL (70-100); HDL CHOLESTEROL 50 mg/dL; LDL CHOLESTEROL,CALCULATED 89 mg/dL; LDL/HDL RATIO 1.8 (<3.6); POTASSIUM 4.4 mmol/L (3.5-5.0); SODIUM 140 mmol/L (135-145); TOTAL PROTEIN 7.3 g/dL (6.7-8.2); TRIGLYCERIDES 199 mg/dL; VLDL CHOLESTEROL 40 mg/dL
[2022-04-21 12:10] LABS: THYROID STIMULATING HORMONE 1.28 uIU/mL (0.34-5.60)
== END 2022-04-21 08:42 | disposition home or self-care (01) ==
LOC: LAB.N 08:41
PROVIDERS: ATTEND Physician Assistant
DX: I10 Essential (primary) hypertension (principal); E11.9 Type 2 diabetes mellitus without complications
CPT/HCPCS: 36415; 80053; 80061; 83721; 84443; 85025

== ENCOUNTER 2022-04-21 08:47 | Outpatient (CLI) | payer MEDICARE, OTHER ==
--- NOTE | 2022-04-21 10:52 | XRAY Report ---
PROCEDURE: Knee 3 View BILAT INDICATIONS: LEFT KNEE PAIN TECHNIQUE: 3 views of both knees were acquired. COMPARISON: Left knee radiographs 12/27/2019. FINDINGS: Bones: No fractures or dislocations. No suspicious bony lesions. Right knee: Mild tricompartmental joint space narrowing, most pronounced at the medial compartment. Left knee: Tricompartmental joint space narrowing present, moderate at the medial compartment, mild a t the lateral and patellofemoral compartments. Soft tissues: Bilateral small knee effusions are present. No suspicious soft tissue calcifications. IMPRESSION: 1. Degenerative changes of both knees. 2. No acute fracture visualized. 3. Small bilateral knee effusions. Reviewed by: Robe Haynes MD on 04/21/2022 10:50 AM PDT Approved by: Robe Haynes MD on 04/21/2022 10:50 AM PDT Station ID: [id number]
--- NOTE | 2022-04-21 11:24 | XRAY Report ---
PROCEDURE: Shoulder 2 View LT INDICATIONS: LEFT SHOULDER PAIN TECHNIQUE: 2 views of the shoulder were acquired. COMPARISON: 08/03/2017 plain films FINDINGS: Bones: No fractures or dislocations. No suspicious bony lesions. Visualized ribs appear intact. M ild periarticular osteophyte formation at the acromial clavicular and glenohumeral joints. Soft tissues: No suspicious soft tissue calcifications. IMPRESSION: 1. Osteoarthritis. 2. No acute fracture. No osseous lesion. If symptoms and/or clinical suspicion for pathology continue , further assessment with repeat plain films, or advanced imaging (e.g., CT, MRI, or bone scan) is re commended for further assessment. Reviewed by: Norma Parks MD on 04/21/2022 11:22 AM PDT Approved by: Norma Parks MD on 04/21/2022 11:22 AM PDT Station ID: [id number]
== END 2022-04-21 08:48 | disposition home or self-care (01) ==
LOC: DI.N 08:47
PROVIDERS: ATTEND Physician Assistant
DX: M17.0 Bilateral primary osteoarthritis of knee (principal); M25.462 Effusion, left knee; M25.461 Effusion, right knee; M19.012 Primary osteoarthritis, left shoulder; I10 Essential (primary) hypertension; E11.9 Type 2 diabetes mellitus without complications
CPT/HCPCS: 36415; 80053; 80061; 83721; 84443; 85025

== ENCOUNTER 2022-05-04 10:54 | Outpatient (CLI) | payer MEDICARE, OTHER ==
[2022-05-04 11:33] VITALS: BP 124/66
--- NOTE | 2022-05-04 11:33 | SLEEP CARE CONSULTATION ---
Information from patient questionnaire entered by Keily Landry MA. I have reviewed and concur with the information entered by Keily Landry MA. This document represents the service I personally performed and the decisions made by , Janel Cuevas ARNP. History of Present Illness Service Date and Time: 05/04/2022 1054 Previous diagnosis: Severe, Obstructive Sleep Apnea-Hypopnea Syndrome, Central Sleep Apnea-Hypopnea Syndrome AHI: 54.7 (in 2018) Reason for follow up: annual (last seen 02/2021) Equipment type: CPAP (Dreamstation 2) Equipment obtained from: Other ([facility];) Mask style: Nasal pillows Backup mask available: Yes (old mask) Prior sleep [facility]: Yes [facility] HPI additional information: CL[place] SERVIN was diagnosed to have severe, AHI 54.7, obstructive sleep apnea-hypopnea syndrome and returned today for CPAP therapy annual follow-up. Sleep Study - Results Prior sleep studies: Yes Year and Where: [facility] Compliance Data - Data Reviewed with Patient Average duration of nightly device use: 5 hours 4 minutes Compliance rate %: 74.4 (172/180 days used) Current pressure setting (cmH2O): 8-12 Average residual AHI: 1.9 Central apnea: 0.1 Obstructive apnea: 0.5 Average large leak: 2 L/min Subjective Patient concerns: reports: condensation in mask/hose, dry mouth, nose, throat. denies: aerophagia, mask discomfort, air blowing in eyes, mask leak noise, nasal congestion, epistaxis Observed to snore while using device: No Current pressure setting perceived as: comfortable On therapy, patient: reports: sleeping better, awakening more refreshed, being more awake and alert during the day, more rested overall. denies: drowsiness while driving Initial [place] Sleepiness Scale score: 17 (in 2017) Current [place] Sleepiness Scale score: 13 Allergies and Home Medications Drug allergies reviewed: Yes (NKDA) Home medication list reviewed: Yes (no changes) Allergy and home medication list: Allergies No Known Drug Allergies Allergy (Verified 02/28/19 07:27) Review of Systems Review of systems same as previous: Yes (no changes) Physical Exam Vital signs obtained and entered by: JAMES BRICENO Blood Pressure: 124/66 Cuff size: regular Heart Rate: 60 O2 Saturation: 97 Height: 5 ft 7 in Weight: 238 lb 4 oz Body Mass Index: 37.3 BMI Classification: Obese Impression and Plan 1. Obstructive Sleep Apnea-Hypopnea Syndrome, severe, with good treatment compliance and good apnea control. On CPAP therapy, the patient has better sleep quality and is more rested overall. Patient has significant improvement of their sleep apnea and are satisfied with current CPAP therapy. Patient has been having some dry mouth with a little bit of condensation. I showed him how to adjust his humidity on his new DreamStation 2. Patient voiced understanding. Patient had questions about his supplies because he is having difficulty getting it from [employer]. I explained to him that [employer] sold out to [facility]. I supplied him with their phone number and address so that he may contact them about getting supplies. He voiced understanding. Patient's apnea severity and rationale for treatment to reduce apnea, improve sleep quality and reduce cardiovascular and cerebrovascular events was reviewed. I also reviewed the benefit of consistent device use of CPAP for cardiac disease, arrhythmia, diabetes, gastric reflux and anxiety. 2. Obesity, unspecified. Currently patients BMI is 37.3. Obesity increases the risk of apnea, CPAP pressure requirements and overall health risks especially cardiovascular and diabetes. Thus patient is advised to lose weight. * Continue auto CPAP pressure at 8-12 cmH2O * Update supplies * Notify me if snoring with mask or feeling that the pressure is too much or too little * Attempt to lose weight * Call this office if any problems using CPAP * Return for follow up in 1 year, or sooner if concerns arise Counseling Topics: Spare mask, Weight loss health impact Visit Type: In Office Time Spent with Patient (minutes): 25 Provider Statement: I spent 100% of the Face to Face Visit with the patient with greater than 50% spent counseling the patient and coordination of care.
== END 2022-05-04 10:55 | disposition home or self-care (01) ==
LOC: SC 10:54
PROVIDERS: ATTEND Nurse Practitioner Family
DX: G47.33 Obstructive sleep apnea (adult) (pediatric) (principal); E66.9 Obesity, unspecified; Z68.37 Body mass index [BMI] 37.0-37.9, adult
CPT/HCPCS: 99213; G0463; 99212

== ENCOUNTER 2022-09-29 07:46 | Outpatient (CLI) | payer MEDICARE, OTHER ==
[2022-09-29 12:16] LABS: BASOPHILS % (AUTO) 0.4 %; EOSINOPHILS # (AUTO) 0.2 10^3/uL (0.0-0.7); EOSINOPHILS % (AUTO) 2.2 %; HCT - HEMATOCRIT 38.2 % (42.0-52.0); HGB - HEMOGLOBIN 12.2 g/dL (14.0-18.0); LYMPHOCYTES # (AUTO) 2.4 10^3/uL (1.5-3.5); LYMPHOCYTES % (AUTO) 35.3 %; MEAN CORPUSCULAR HEMOGLOBIN 31.3 pg (27.0-31.0); MEAN CORPUSCULAR HGB CONC 31.9 g/dL (32.0-36.0); MEAN CORPUSCULAR VOLUME 97.9 fL (80.0-94.0); MEAN PLATELET VOLUME 11.9 fL (7.4-11.4); MONOCYTES # (AUTO) 0.6 10^3/uL (0.0-1.0); MONOCYTES % (AUTO) 8.6 %; NEUTROPHILS # (AUTO) 3.6 10^3/uL (1.5-6.6); NEUTROPHILS % (AUTO) 53.1 %; PLT - PLATELET COUNT 172 10^3/uL (130-450); WHITE BLOOD COUNT 6.7 x10^3/uL (4.8-10.8)
[2022-09-29 12:31] LABS: ALBUMIN 3.8 g/dL (3.2-5.5); ALBUMIN/GLOBULIN RATIO 1.2 (1.0-2.2); ALKALINE PHOSPHATASE 56 IU/L (42-121); ALT ALANINE AMINOTRANSFERASE 47 IU/L (10-60); AST ASPARTATE AMINOTRANSFERASE 34 IU/L (10-42); BILIRUBIN,TOTAL 1.2 mg/dL (0.2-1.0); BUN - BLOOD UREA NITROGEN 28 mg/dL (6-20); CALCIUM 9.1 mg/dL (8.5-10.3); CARBON DIOXIDE - CO2 27 mmol/L (21-32); CHLORIDE 107 mmol/L (101-111); CHOL/HDL RATIO 3.3 (<5.0); CHOLESTEROL 164 mg/dL; CREATININE 1.2 mg/dL (0.6-1.2); CREATININE,URINE 116.1 mg/dL; GFR - MDRD 58 (>89); GLUCOSE 133 mg/dL (70-100); HDL CHOLESTEROL 49 mg/dL; LDL CHOLESTEROL,CALCULATED 78 mg/dL; LDL/HDL RATIO 1.6 (<3.6); MICROALBUM/CREATININE RATIO,UR 3.4 ug/mg (<30.0); MICROALBUMIN,URINE 0.4 mg/dL (0-300.0); POTASSIUM 4.6 mmol/L (3.5-5.0); SODIUM 142 mmol/L (135-145); TOTAL PROTEIN 7.1 g/dL (6.7-8.2); TRIGLYCERIDES 187 mg/dL; URIC ACID 7.1 mg/dL (2.6-7.2); VLDL CHOLESTEROL 37 mg/dL
[2022-09-29 13:53] LABS: ESTIMATED AVERAGE GLUCOSE 171 mg/dL (70-100); HEMOGLOBIN A1c% 7.6 % (4.27-6.07)
== END 2022-09-29 07:47 | disposition home or self-care (01) ==
LOC: LAB.N 07:46
PROVIDERS: ATTEND Physician Assistant
DX: E11.9 Type 2 diabetes mellitus without complications (principal); E78.5 Hyperlipidemia, unspecified; M10.9 Gout, unspecified
CPT/HCPCS: 36415; 80053; 80061; 82043; 82570; 83036; 83721; 84550; 85025

== ENCOUNTER 2022-11-17 08:48 | Outpatient (CLI) | payer MEDICARE, OTHER ==
[2022-11-17 12:01] LABS: CREATININE 1.3 mg/dL (0.6-1.2); POTASSIUM 4.8 mmol/L (3.5-5.0)
== END 2022-11-17 08:49 | disposition home or self-care (01) ==
LOC: LAB.N 08:48
PROVIDERS: ATTEND Physician Assistant
DX: R60.0 Localized edema (principal)
CPT/HCPCS: 36415; 80048

== ENCOUNTER 2023-01-10 07:20 | Outpatient (CLI) | payer MEDICARE, OTHER ==
[2023-01-10 11:47] LABS: BASOPHILS % (AUTO) 0.5 %; EOSINOPHILS # (AUTO) 0.2 10^3/uL (0.0-0.7); EOSINOPHILS % (AUTO) 2.7 %; HCT - HEMATOCRIT 35.8 % (42.0-52.0); HGB - HEMOGLOBIN 11.6 g/dL (14.0-18.0); LYMPHOCYTES # (AUTO) 1.8 10^3/uL (1.5-3.5); LYMPHOCYTES % (AUTO) 28.3 %; MEAN CORPUSCULAR HEMOGLOBIN 31.4 pg (27.0-31.0); MEAN CORPUSCULAR HGB CONC 32.4 g/dL (32.0-36.0); MEAN PLATELET VOLUME 12.2 fL (7.4-11.4); MONOCYTES # (AUTO) 0.5 10^3/uL (0.0-1.0); MONOCYTES % (AUTO) 8.3 %; NEUTROPHILS # (AUTO) 3.8 10^3/uL (1.5-6.6); NEUTROPHILS % (AUTO) 59.7 %; PLT - PLATELET COUNT 174 10^3/uL (130-450); RED BLOOD COUNT 3.69 10^6/uL (4.70-6.10); RED CELL DISTRIBUTION WIDTH 14.3 % (12.0-15.0); WHITE BLOOD COUNT 6.4 x10^3/uL (4.8-10.8)
[2023-01-10 12:26] LABS: ALBUMIN 3.9 g/dL (3.2-5.5); ALBUMIN/GLOBULIN RATIO 1.1 (1.0-2.2); ALKALINE PHOSPHATASE 66 IU/L (42-121); ALT ALANINE AMINOTRANSFERASE 30 IU/L (10-60); AST ASPARTATE AMINOTRANSFERASE 26 IU/L (10-42); BILIRUBIN,TOTAL 1.4 mg/dL (0.2-1.0); BUN - BLOOD UREA NITROGEN 35 mg/dL (6-20); CARBON DIOXIDE - CO2 25 mmol/L (21-32); CHLORIDE 106 mmol/L (101-111); CHOL/HDL RATIO 3.3 (<5.0); CHOLESTEROL 156 mg/dL; CREATININE 1.5 mg/dL (0.6-1.2); GFR - MDRD 45 (>89); GLUCOSE 160 mg/dL (70-100); HDL CHOLESTEROL 47 mg/dL; LDL CHOLESTEROL,CALCULATED 54 mg/dL; LDL/HDL RATIO 1.1 (<3.6); POTASSIUM 4.6 mmol/L (3.5-5.0); SODIUM 139 mmol/L (135-145); TOTAL PROTEIN 7.3 g/dL (6.7-8.2); TRIGLYCERIDES 276 mg/dL; VLDL CHOLESTEROL 55 mg/dL
[2023-01-10 12:30] LABS: ESTIMATED AVERAGE GLUCOSE 166 mg/dL (70-100); HEMOGLOBIN A1c% 7.4 % (4.27-6.07)
[2023-01-10 12:35] LABS: THYROID STIMULATING HORMONE 1.36 uIU/mL (0.34-5.60)
== END 2023-01-10 07:21 | disposition home or self-care (01) ==
LOC: LAB.N 07:20
PROVIDERS: ATTEND Physician Assistant
DX: I48.91 Unspecified atrial fibrillation (principal); E11.9 Type 2 diabetes mellitus without complications
CPT/HCPCS: 36415; 80053; 80061; 83036; 83721; 84443; 85025

== ENCOUNTER 2023-02-06 08:58 | Outpatient (CLI) | payer MEDICARE, OTHER | END 2023-02-06 08:59 | disposition home or self-care (01) | LOC: LAB.N 08:58 | PROVIDERS: ATTEND Physician Assistant | DX: Z53.9 Procedure and treatment not carried out, unspecified reason (principal) | CPT/HCPCS: 36415; 80048 ==

== ENCOUNTER 2023-05-04 11:06 | Outpatient (CLI) | payer MEDICARE, OTHER ==
--- NOTE | 2023-05-04 11:55 | Sleep Patient Instructions ---
Sleep Center Visit Summary - Patient Visit Information Reason for Visit: Annual visit for PAP therapy - Patient Instructions Additional Instructions: You will continue with CPAP therapy with pressure set at 8-12 cmH2O. A supply prescription will be updated with your DME. We encourage you to continue to try to lose weight. Please follow up with the sleep care office in 1 year. - Clinic Information Contact: [facility] [address] [place] [address] [email or web address] T: [phone]
--- NOTE | 2023-05-04 11:58 | SLEEP CARE CONSULTATION ---
Information from patient questionnaire entered by Silvana Arevalo. I have reviewed and concur with the information entered by Silvana Arevalo. This document represents the service I personally performed and the decisions made by me, Janel Cuevas ARNP. History of Present Illness Service Date and Time: 05/04/2023 1106 Previous diagnosis: Severe, Obstructive Sleep Apnea-Hypopnea Syndrome, Central Sleep Apnea-Hypopnea Syndrome AHI: 54.7 (in 2018) Reason for follow up: annual (LAST SEEN 04/2022) Equipment type: CPAP (Dreamstation 2) Equipment obtained from: Other ([facility]; getting supplies) Mask style: Nasal pillows Backup mask available: No (has a new one ordered, on the way) Last cushion change: months Prior sleep studies: Yes Year and Where: 2018 - [facility] HPI additional information: CL[place] SERVIN was diagnosed to have severe, AHI 54.7, obstructive sleep apnea-hypopnea syndrome and returned today for CPAP therapy annual follow-up. Sleep Study - Results Prior sleep studies: Yes Year and Where: 2018 - [facility] CPAP Compliance Data - Data Reviewed with Patient Average duration of nightly device use: 6 HRS 22 MIN 32 SECS Compliance rate %: 93.9 (11/01/22-04/29/23; 180/180 days used) Current pressure setting (cmH2O): 8-12 Average residual AHI: 2.4 Central apnea: 0.1 Obstructive apnea: 0.7 Hypopnea: 1.6 Average large leak: 1 min 2 secs Subjective Missed days of use due to: reports: travel Patient concerns: reports: mask discomfort (occasional soreness under nose, resolves quickly), dry mouth, nose, throat (dry mouth and throat, sometimes). denies: aerophagia, air blowing in eyes, mask leak noise, condensation in mask/hose, nasal congestion, epistaxis Observed to snore while using device: No Current pressure setting perceived as: comfortable On therapy, patient: reports: sleeping better, awakening more refreshed, being more awake and alert during the day, more rested overall. denies: drowsiness while driving Initial [place] Sleepiness Scale score: 17 (in 2017) Current [place] Sleepiness Scale score: 15 Allergies and Home Medications Known drug allergies: No Drug allergies reviewed: Yes Home medication list reviewed: Yes (no changes) Allergy and home medication list: Allergies No Known Drug Allergies Allergy (Verified 05/03/23 15:30) Review of Systems Review of systems same as previous: Yes (no changes) Physical Exam Vital signs obtained and entered by: Janel Balderrama NP Blood Pressure: 137/65 Cuff size: wrist (right) Heart Rate: 70 O2 Saturation: 95 Height: 5 ft 7 in Weight: 243 lb Body Mass Index: 38.0 BMI Classification: Obese Impression and Plan 1. Obstructive Sleep Apnea-Hypopnea Syndrome, severe, with good treatment compliance and good apnea control. On CPAP therapy, the patient has better sleep quality and is more rested overall. Patient has significant improvement of their sleep apnea and is satisfied with current CPAP therapy. He states he gets a little bit of nose soreness in the morning that resolves quickly from his mask. He states is not a problem. He also occasionally gets some dry mouth and throat. But, it is not often. Patient's apnea severity and rationale for treatment to reduce apnea, improve sleep quality and reduce cardiovascular and cerebrovascular events was reviewed. I also reviewed the benefit of consistent device use of CPAP for cardiac disease, arrhythmia, diabetes, gastric reflux, and anxiety. 2. Obesity, unspecified. Currently patients BMI is 38. Obesity increases the risk of apnea, CPAP pressure requirements and overall health risks especially cardiovascular and diabetes. Thus patient is advised to lose weight. * Continue auto CPAP pressure at 8-12 cmH2O * Update supply prescription * Notify me if snoring with mask or feeling that the pressure is too much or too little * Attempt to lose weight * Call this office if any problems using CPAP * Return for follow up in 1 year, or sooner if concerns arise Counseling Topics: Spare mask, Weight loss health impact Prescriptions: Device supplies Follow up with Sleep Care in: 1 year Visit Type: In Office Time Spent with Patient (minutes): 20 Provider Statement: I spent 100% of the Face to Face Visit with the patient with greater than 50% spent counseling the patient and coordination of care.
[2023-05-04 12:04] VITALS: BP 137/65; O2SAT 95
== END 2023-05-04 11:07 | disposition home or self-care (01) ==
LOC: SC 11:06
PROVIDERS: ATTEND Nurse Practitioner Family
DX: G47.33 Obstructive sleep apnea (adult) (pediatric) (principal); E66.9 Obesity, unspecified; Z68.38 Body mass index [BMI] 38.0-38.9, adult
CPT/HCPCS: 99213; G0463; 99212

== ENCOUNTER 2023-11-30 07:43 | Outpatient (CLI) | payer MEDICARE, OTHER ==
[2023-11-30 12:30] LABS: ESTIMATED AVERAGE GLUCOSE 157 mg/dL (70-100); HEMOGLOBIN A1c% 7.1 % (4.27-6.07)
[2023-11-30 12:52] LABS: BUN - BLOOD UREA NITROGEN 35 mg/dL (6-20); CALCIUM 10.1 mg/dL (8.5-10.3); CARBON DIOXIDE - CO2 24 mmol/L (21-32); CHLORIDE 107 mmol/L (101-111); CHOL/HDL RATIO 2.8 (<5.0); CHOLESTEROL 152 mg/dL; CREATININE 1.3 mg/dL (0.6-1.3); GFR - MDRD 53 (>89); GLUCOSE 123 mg/dL (74-104); HDL CHOLESTEROL 54 mg/dL; LDL CHOLESTEROL,CALCULATED 67 mg/dL; LDL/HDL RATIO 1.2 (<3.6); POTASSIUM 5.1 mmol/L (3.5-4.5); SODIUM 137 mmol/L (135-145); TRIGLYCERIDES 157 mg/dL (48-352); VLDL CHOLESTEROL 31 mg/dL
== END 2023-11-30 07:44 | disposition home or self-care (01) ==
LOC: LAB.N 07:43
PROVIDERS: ATTEND Physician Assistant
DX: E11.9 Type 2 diabetes mellitus without complications (principal); E78.5 Hyperlipidemia, unspecified
CPT/HCPCS: 36415; 80048; 80061; 83036; 83721

== ENCOUNTER 2023-12-07 11:53 | Outpatient (CLI) | payer MEDICARE, OTHER ==
[2023-12-07 17:31] LABS: BASOPHILS % (AUTO) 0.6 %; EOSINOPHILS # (AUTO) 0.2 10^3/uL (0.0-0.7); EOSINOPHILS % (AUTO) 2.3 %; HCT - HEMATOCRIT 37.7 % (42.0-52.0); LYMPHOCYTES # (AUTO) 2.3 10^3/uL (1.5-3.5); LYMPHOCYTES % (AUTO) 32.7 %; MEAN CORPUSCULAR HEMOGLOBIN 30.6 pg (27.0-31.0); MEAN CORPUSCULAR HGB CONC 31.8 g/dL (32.0-36.0); MEAN CORPUSCULAR VOLUME 96.2 fL (80.0-94.0); MEAN PLATELET VOLUME 11.8 fL (7.4-11.4); MONOCYTES # (AUTO) 0.5 10^3/uL (0.0-1.0); MONOCYTES % (AUTO) 7.4 %; NEUTROPHILS % (AUTO) 56.7 %; PLT - PLATELET COUNT 183 10^3/uL (130-450); RED BLOOD COUNT 3.92 10^6/uL (4.70-6.10)
[2023-12-07 17:42] LABS: POTASSIUM 4.8 mmol/L (3.5-4.5)
== END 2023-12-07 11:54 | disposition home or self-care (01) ==
LOC: LAB.N 11:53
PROVIDERS: ATTEND Physician Assistant
DX: D53.1 Other megaloblastic anemias, not elsewhere classified (principal); E87.5 Hyperkalemia
CPT/HCPCS: 36415; 82607; 82746; 84132; 85025

== ENCOUNTER 2023-12-07 11:56 | Outpatient (CLI) | payer MEDICARE, OTHER ==
--- NOTE | 2023-12-07 16:35 | XRAY Report ---
Hand 1-2V BL HISTORY: 83 years of age, HAND PAIN TECHNIQUE: Hand 1-2V BL COMPARISON: None. 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 No acute fracture or dislocation . Right hand: Moderate degenerative changes of the second distal interphalangeal joint. Mild degenerati ve changes of the third distal interphalangeal joint and the first metacarpophalangeal joint. No acut e fracture or dislocation. Multifocal lucency within the carpal bones, nonspecific. Reviewed by: Aarti Walter MD on 12/07/2023 4:16 PM PDT Approved by: Aarti Walter MD on 12/07/2023 4:16 PM PDT Station ID: [id number]
== END 2023-12-07 11:57 | disposition home or self-care (01) ==
LOC: DI.N 11:56
PROVIDERS: ATTEND Physician Assistant
DX: M18.12 Unilateral primary osteoarthritis of first carpometacarpal joint, left hand (principal); M19.041 Primary osteoarthritis, right hand; D53.1 Other megaloblastic anemias, not elsewhere classified; E87.5 Hyperkalemia
CPT/HCPCS: 36415; 82607; 82746; 84132; 85025